=== PATIENT | female | born 1975 | race Caucasian/White ===

== ENCOUNTER → 2017-11-24 | Outpatient (CLI) | payer OTHER | LOC: COL.RAD 09:38 | DX: M51.16 Intervertebral disc disorders with radiculopathy, lumbar region (principal) ==

== ENCOUNTER → 2017-12-13 | Outpatient (CLI) | payer OTHER ==
[~2017-12-13] VITALS: Ht 170.2 cm; Wt 82.5 kg
[~2017-12-13] MED LIST: MULTIPLE VITAMI1 CAP PO
[2017-12-13 13:44] VITALS: BP 134/92; PULSE 82
[2017-12-13 14:25] VITALS: BP 130/84; PULSE 57
== END ==
LOC: COL.RAD 13:00
DX: M51.16 Intervertebral disc disorders with radiculopathy, lumbar region (principal)
CPT/HCPCS: J3301

== ENCOUNTER → 2018-01-05 | Outpatient (CLI) | payer OTHER ==
[~2018-01-05] VITALS: Ht 170.2 cm; Wt 81.8 kg
[2018-01-05 10:37] VITALS: BP 134/91; PULSE 80
[2018-01-05 11:00] VITALS: BP 126/92; PULSE 70
== END ==
LOC: COL.RAD 09:30
DX: M51.16 Intervertebral disc disorders with radiculopathy, lumbar region (principal)
CPT/HCPCS: J3301

== ENCOUNTER → 2019-01-27 | Outpatient (CLI) | payer OTHER | LOC: MC.RAD 14:04 | DX: Z12.31 Encounter for screening mammogram for malignant neoplasm of breast (principal) ==

== ENCOUNTER → 2020-04-08 | Outpatient (CLI) | payer OTHER | LOC: DIA.ED 08:50 | DX: E11.9 Type 2 diabetes mellitus without complications (principal); Z79.84 Long term (current) use of oral hypoglycemic drugs; E78.5 Hyperlipidemia, unspecified | CPT/HCPCS: G0108 ==

== ENCOUNTER → 2020-04-24 | Outpatient (CLI) | payer OTHER | LOC: DIA.ED | DX: E11.9 Type 2 diabetes mellitus without complications (principal); Z79.84 Long term (current) use of oral hypoglycemic drugs; E78.5 Hyperlipidemia, unspecified | CPT/HCPCS: G0108 ==

== ENCOUNTER → 2020-05-22 | Outpatient (CLI) | payer OTHER | LOC: DIA.ED 09:32 | DX: E11.9 Type 2 diabetes mellitus without complications (principal); Z79.84 Long term (current) use of oral hypoglycemic drugs; E78.5 Hyperlipidemia, unspecified | CPT/HCPCS: G0108 ==

== ENCOUNTER → 2020-07-31 | Outpatient (CLI) | payer OTHER | LOC: DIA.ED 08:44 | DX: E11.9 Type 2 diabetes mellitus without complications (principal); Z79.84 Long term (current) use of oral hypoglycemic drugs; E78.5 Hyperlipidemia, unspecified | CPT/HCPCS: G0108 ==

== ENCOUNTER → 2022-04-28 | Outpatient (CLI) | payer OTHER | LOC: MC.RAD 10:26 | DX: Z12.31 Encounter for screening mammogram for malignant neoplasm of breast (principal) ==